=== PATIENT | female | born 1965 | race African-American/Black ===

== ENCOUNTER 2022-02-05 19:19 | Emergency (ER) | payer BC | END 2022-02-05 20:01 | disposition home or self-care (01) | LOC: NAV ERS 19:19 | DX: B34.9 Viral infection, unspecified (principal); I10 Essential (primary) hypertension; E03.9 Hypothyroidism, unspecified; E78.5 Hyperlipidemia, unspecified; Z20.822 Contact with and (suspected) exposure to COVID-19; Z79.899 Other long term (current) drug therapy | CPT/HCPCS: 99283; U0003; U0005 ==